=== PATIENT | female | born 1985 | race Caucasian/White ===

== ENCOUNTER 2016-12-24 12:46 | Emergency (ER) | payer OTHER ==
[~2016-12-24] VITALS: Ht 167.6 cm; Wt 61.2 kg
[2016-12-24] MEDS ORDERED: LIDOCAINE 1% INJ 20 ML (XYLOCAINE) VIAL ONE (12:52)
[2016-12-24] MEDS ORDERED: LIDOCAINE 1% INJ 20 ML (XYLOCAINE) VIAL INJ ONE (13:00)
--- NOTE | 2016-12-24 13:35 | ED GI ---
General Chief Complaint: Rect Problems Stated Complaint: HEMORRHOID Source of Information: Patient Exam Limitations: No Limitations History of Present Illness Time Seen By Provider: 13:30 Initial Comments This 31-year-old white female presents with external thrombosed hemorrhoids that have been painful and progressive for the last several days. The patient has been employing sitz baths without significant improvement. The patient's hemorrhoids first appeared with . Although they have, and gone in the past this time they been persistent precipitate a recent emergency department. Allergies and Home Medications Allergies Coded Allergies: No Known Allergies (Unverified Allergy, Mild, 01/28/09) Review of Systems Constitutional: No chills, No fever EENTM: No Blurred Vision Respiratory: Denies Cough Cardiovascular: Denies Chest Pain Gastrointestinal: Denies Abdominal Pain, Other (hemorrhoids) Genitourinary: Denies Burning, Denies Frequency Musculoskeletal: No back pain Skin: No rash Psychiatric/Neurological: No Symptoms Reported Endocrine: No Symptoms Reported Hematologic/Lymphatic: No Symptoms Reported Past Zgzhdli-Ckhaqp-Ikwsqp Hx Patient Social History Recent Foreign Travel: No Contact w/Someone Who Travel: No Reviewed Nursing Assessment Reviewed/Agree w Nursing PMH: Yes Physical Exam Vital Signs Capillary Refill : General Appearance: WD/WN, mild distress HEENT: normal ENT inspection Neck: normal inspection Respiratory: lungs clear Cardiovascular: regular rate, rhythm Gastrointestinal: normal bowel sounds, non tender, soft Rectal: hemorrhoids Extremities: normal range of motion, non-tender, normal inspection Back: normal inspection Pelvic: normal external exam Neurologic/Psychiatric: no motor/sensory deficits, alert, normal mood/affect, oriented x 3 Skin: normal color, warm/dry Progress/Results/Core Measures Results/Orders My Orders Orders - SHEMAR CARDENAS MD Lidocaine 1% Injection (Xylocaine 1% Inj (12/24/16 12:52) Lidocaine 1% Injection (Xylocaine 1% Inj (12/24/16 13:00) Progress Note : Time: 13:32 Progress Note The patient had 3 large external hemorrhoids extending from 3 o'clock counterclockwise to 8 o'clock. After a discussion of the procedure and with the patient's consent 1 percent plain Xylocaine was used for local anesthesia. The external thrombosed hemorrhoids were excised and the clots removed. The patient tolerated the procedure well. Her estimated blood loss was 25 mL. A dressing was then applied. Departure Impression Impression: Primary Impression: Hemorrhoids Qualified Codes: K64.9 - Unspecified hemorrhoids Disposition: 01 HOME, SELF-CARE Condition: Improved Departure-Patient Inst. Decision time for Depature: 13:34 Referrals: NO,LOCAL PHYSICIAN (PCP) Primary Care Physician Patient Instructions: Hemorrhoids (DC) Add. Discharge Instructions: Sitz baths for comfort and Vicodin for pain. Stool softener on a daily basis. Return of any problems or questions. Follow up with your caregiver choice early next week. All discharge instructions reviewed with patient and/or family. Voiced understanding. SHEMAR CARDENAS MD Dec 24, 2016 13:35
[2016-12-24] MEDS ORDERED: fentaNYL INJECTION 100 MCG/2 ML AMP IVP ONE (13:45)
[2016-12-24] MEDS ORDERED: LIDOCAINE UROJET 2% GEL 10 ML PKG ONE (13:46)
[2016-12-24] MEDS ORDERED: LIDOCAINE UROJET 2% GEL 10 ML PKG TOP ONE (14:00)
[2016-12-24 14:25] VITALS: BP 118/78
== END 2016-12-24 14:25 | disposition home or self-care (01) ==
LOC: EDUNIT# 12:46 → ER 12:50
DX: K64.5 Perianal venous thrombosis (principal)

== ENCOUNTER 2019-09-20 11:39 | Emergency (ER) | payer OTHER ==
[~2019-09-20] VITALS: Ht 162 cm; Wt 77.0 kg
[2019-09-20] MEDS ORDERED: LIDOCAINE/EPI 2% 1:100,00 (XYLOCAINE) 20 ML VIAL ONE (12:05)
[2019-09-20] MEDS ORDERED: LIDOCAINE 2% VISCOUS 15 ML UDC PO ONE (12:15)
[2019-09-20] MEDS ORDERED: LIDOCAINE/EPI 1%-1:200,000 (XYLOCAINE) 30 ML VIAL INJ ONE (12:15)
--- NOTE | 2019-09-20 12:41 | ED GI ---
General Chief Complaint: Rect Problems Stated Complaint: HEMORRHOID PAIN - 25 WKS PREG Source of Information: Patient Exam Limitations: No Limitations History of Present Illness Date Seen by Provider: Sep 20, 2019 Time Seen by Provider: 12:00 Initial Comments To ER with hemorrhoid pain ER with family since yesterday, she is 25 weeks p regnant. History of hemorrhoids with her last . Has been using sitz baths, witch nahid and Preparation H with no relief at home. Timing/Duration: 1-2 Days Severity/Quality: Moderate Radiation: No Radiation Activities at Onset: None Associated Symptoms: Denies Symptoms Allergies and Home Medications Allergies Coded Allergies: No Known Allergies (Unverified Allergy, Mild, 01/28/09) Patient Home Medication List Home Medication List Reviewed: Yes Review of Systems Review of Systems Constitutional: see HPI EENTM: No Symptoms Reported Respiratory: No Symptoms Reported Cardiovascular: No Symptoms Reported Gastrointestinal: See HPI Genitourinary: No Symptoms Reported Musculoskeletal: no symptoms reported Skin: no symptoms reported Psychiatric/Neurological: No Symptoms Reported Endocrine: No Symptoms Reported Hematologic/Lymphatic: No Symptoms Reported Past Bwgmvzj-Sraaas-Fuptvo Hx Patient Social History Alcohol Use: Denies Use Recreational Drug Use: No Smoking Status: Never a Smoker 2nd Hand Smoke Exposure: No Recent Foreign Travel: No Contact w/Someone Who Travel: No Physical Abuse: No Sexual Abuse: No Mistreated: No Fear: No Past Medical History Surgeries: No Respiratory: No Cardiac: No Neurological: No Genitourinary: No Gastrointestinal: No Musculoskeletal: No Endocrine: No HEENT: No Cancer: No Psychosocial: No Integumentary: No Blood Disorders: No Physical Exam Vital Signs Capillary Refill : Height/Weight/BMI Height: 5'6.00" Weight: 135lbs. oz. 61.085603mn; BMI Method:Estimated General Appearance: WD/WN, no apparent distress HEENT: PERRL/EOMI, normal ENT inspection Respiratory: no respiratory distress, no accessory muscle use Gastrointestinal: normal bowel sounds, soft Extremities: normal range of motion, non-tender Neurologic/Psychiatric: alert, normal mood/affect, oriented x 3 Skin: normal color, warm/dry Exam Comments Rectal exam done with Orin BROWNING at the bedside, there is a large acutely thrombosed hemorrhoid the size of [address] Anders was consulted, came over, we anesthetized this locally with 5 cc of 2% lidocaine with epinephrine 1-100,0 00, elliptical excision of the overlying skin was made and then extraction of a large amount of clotted material. This area was covered with gauze, she was sent home with lidocaine jelly to use as needed. Progress/Results/Core Measures Results/Orders My Orders Orders - CHANEL SHELTON APRN Lidocaine/Epi 1% 1:200,00 (Xylocaine/Epi (09/20/19 12:15) Lidocaine 2% Viscous 15 Ml (Xylocaine Vi (09/20/19 12:15) Lidocaine/Epi 2% 1:100,000 (Xylocaine/Ep (09/20/19 12:05) Medications Given in ED Current Medications Medications Dose Ordered Sig/Regina Route Start Time Stop Time Status Last Admin Dose Admin Lidocaine HCl 5 ml ONCE ONCE PO 09/20/19 12:15 09/20/19 12:16 DC 09/20/19 12:31 15 ML Lidocaine/ Epinephrine 20 ml STK-MED ONCE .ROUTE 09/20/19 12:05 09/20/19 12:12 DC 09/20/19 12:32 2 ML Departure Impression Primary Impression: Hemorrhoids Qualified Codes: K64.9 - Unspecified hemorrhoids Disposition: HOME, SELF-CARE Condition: Stable Departure-Patient Inst. Decision time for Depature: 12:42 Referrals: NO,LOCAL PHYSICIAN (PCP/Family) Primary Care Physician Patient Instructions: Hemorrhoids (DC) Add. Discharge Instructions: 1. If you have severe rectal pain as you can do some gauze in the lidocaine jelly and apply topically to the area a few times a day as needed. Continue with sitz baths, do not wipe after a bowel movement, instead get in the bathtub. Increase water intake and use Colace stool softener as directed which is safe in . All discharge instructions reviewed with patient and/or family. Voiced understanding. Scripts Docusate Sodium (Colace) 100 Mg Capsule 100 MG PO DAILY, #20 CAP Prov: CHANEL SHELTON APRN 09/20/19 CHANEL SHELTON APRN Sep 20, 2019 12:41
[2019-09-20] MEDS ORDERED: DOCU-143 PO (12:43)
[2019-09-20 12:54] VITALS: BP 153/95
--- NOTE | 2019-09-20 21:05 | Consultation - Surgery ---
History of Present Illness History of Present Illness Patient Consulted On(cyn/time) 09/20/19 20:59 Date Seen by Provider: Sep 20, 2019 Time Seen by Provider: 12:30 History of Present Illness seen and eval in ER Patient is a 33 year old female who is 25 weeks . She present to ER with hemorrhoid pain since yesterday. She has history of hemorrhoids with her last that has to have procedure for. Has been using sitz baths, witch nahid and Preparation H with no relief at home. She has pain that is moderate without radiation. Pain not improving, sitting makes worse. States it feels like it continues to get bigger with throbbing type pain. Denies any other complaints. Denies n/v fever sweats chills shortness of breath or chest pain. Allergies and Home Medications Allergies Coded Allergies: No Known Allergies (Unverified Allergy, Mild, 01/28/09) Home Medications Docusate Sodium 100 Mg Capsule, 100 MG PO DAILY Prescribed by: CHANEL SHELTON on 09/20/19 1243 Patient Home Medication List Home Medication List Reviewed: Yes Past Bdpdhte-Cxrseq-Jxhiwp Hx Patient Social History Alcohol Use: Denies Use Recreational Drug Use: No Smoking Status: Never a Smoker 2nd Hand Smoke Exposure: No Recent Foreign Travel: No Contact w/Someone Who Travel: No Recent Infectious Disease Expo: No Surgeries History of Surgeries: Yes (hemorrhoid) Respiratory History of Respiratory Disorde: No Cardiovascular History of Cardiac Disorders: No Neurological History of Neurological Disord: No Reproductive System : Yes Genitourinary History of Genitourinary Disor: No Gastrointestinal History of Gastrointestinal Di: No Musculoskeletal History of Musculoskeletal Dis: No Endocrine History of Endocrine Disorders: No HEENT History of HEENT Disorders: No Cancer History of Cancer: No Psychosocial History of Psychiatric Problem: No Integumentary History of Skin or Integumenta: No Blood Transfusions History of Blood Disorders: No Family Medical History Significant Family History: No Pertinent Family Hx Review of Systems-General Constitutional: No chills, No diaphoresis EENTM: No hearing loss, No ear pain, No blurred vision Respiratory: No dyspnea on exertion Cardiovascular: No chest pain Gastrointestinal: other (external thrombosed hemorrhoid) Genitourinary: No decreased output, No discharge Musculoskeletal: No back pain, No gout, No joint pain Skin: No change in color, No change in hair/nails Psychiatric/Neurological: Denies Anxiety, Denies Depressed, Denies Emotional Problems Physical Exam-General Problems Physical Exam Vital Signs Vital Signs - First Documented 09/20/19 12:06 Temp 36.5 Pulse 117 Resp 18 B/P (MAP) 153/95 (114) Pulse Ox 98 O2 Delivery Room Air Capillary Refill : Less Than 3 Seconds General Appearance: WD/WN, no apparent distress HEENT: PERRL/EOMI, normal ENT inspection, TMs normal Neck: non-tender, supple Respiratory: chest non-tender, no respiratory distress, no accessory muscle use Cardiovascular: regular rate, rhythm Gastrointestinal: non tender, soft, other (enlarged uterus) Rectal: other (left lateral external thromobsed hemorrhoid) Back: no CVA tenderness, no vertebral tenderness Extremities: normal range of motion Neurologic/Psychiatric: alert, normal mood/affect, oriented x 3 Skin: normal color, warm/dry Lymphatic: no adenopathy Assessment/Plan Assessment/Plan Assessment/Plan thrombosed external hemorhoid rectal pain 25 weeks patient intstructed to continue sitz baths keep stools soft discussed incision and drainage and evacuation of clot she understands and wishes to proceed follow up in about 1-2 weeks, if any issues be seen at that time. Procedure: Patient prepped and drapped. Local anesthetic injected into left lateral thrombosed hemorrhoid and elliptical portion of skin of hemorrhoid removed and hemostat was used to dissect around the clot and remove, wound was further explored and all clot was evacuated. area was cleaned and dried and sterile bandage applied. Patient tolerated well without any complication. SARIKA CORTEZ DO Sep 20, 2019 21:05
--- OUTSIDE RECORDS SUMMARY | 2019-09-21 19:43 | XMS REPORT ---
Author Author [facility] Organization [facility] Address [address] [address] Care Team Providers Care Internet Security Specialist Name Role Phone NO, LOCAL PHYSICIAN Unavailable Unavailable SHEMAR CARDENAS MD Unavailable Unavailable Allergies Normalized Allergy Reported Date of Reaction(s) Care Provider Facility Allergy Type classification allergen Allergy Onset KASH (5 Unclassified NKANo Known 01-28-2009 - no information KASH CARDENAS , Not Available sources.) Allergies (71901) Medications The data below is from unstructured sourcesNo medication information available. Problems No Information Procedures The data below is from unstructured sourcesNo procedure information available. Immunizations No Information Results No Information Vital Signs The data below is from unstructured sources Vital Response Date/Time Temperature (Fahrenheit) 97.5 degree s F (97.6 - 99.5) 12/24/2016 1:00pm Temperature (Calculated Celsius) 36. 10251 degrees C (36.4 - 37.5) 12/24/2016 1:00pm Temperature Source Temporal 12/24/2016 1:00pm Pulse Rate (adult) 70 bpm (60 - 90) 12/24/2016 1:00pm Respiratory Rate 16 bpm (12 - 24) 12/24/2016 1:00pm O2 Sat by Pulse Oximetry 98 % (88 - 100) 12/24/2016 1:00pm Blood Pressure 126/76 mm Hg 12/24/2016 1:00pm Blood Pressure Mean 93 mm Hg 12/24/2016 1:00pm Pain Numeric Pain Scale 6 1:00pm Height (Feet) 5 feet 1:00pm Height (Inches) 6.00 inches 12/24/2016 1:00pm Height (Calculated Centimeters) 167. 752374 cm 12/24/2016 1:00pm Weight (Pounds) 135 pounds 12/24/2016 1:00pm Weight (Calculated Kilograms) 61.234 971 kilograms 12/24/2016 1:00pm Capillary Refill Capillary Refill Less Than 3 Seconds 12/24/2016 1:00pm Height 5 ft 6 in 017 1:00pm Weight 135 lb 12/24/2016 1:00pm Body Mass Index 21.8 kg/m^2 12/24/2016 1:00pm Interventions No Information Plan of Treatment The data below is from unstructured sources Discharge Date 12/24/16 2:25pm Disposition 01 HOME, SELF-CARE Condition at Discharge Improved Instructions/Education Provided Hemo rrhoids (DC) Prescriptions See Medication Section Referrals NO,LOCAL PHYSICIAN Order Date: Primary Care Physician Note: Additional Instructions/Education Si tz baths for comfort and Vicodin for pain. Stool softener on a daily basis. Return of any problems or questions. Follow up with your caregiver choice early next week. All discharge instructions reviewed with patient and/or family. Voiced understanding. Goals No Information Social History No Information Functional Status The data below is from unstructured sourcesNo functional status information available. Mental Status No Information Encounters Encounter Normalized Encounter Encounter Diagnosis Care Provi mick Organization Date Type 12-24-2016 Patient encounter no information no name (no phone) no organization name procedure (no phone) Medical Equipment No Information Payers No Information Advance Directives Directive Response Recor ded Date/Time Advance Directives No 1:00pm Resuscitation Status Full Code 12/24/16 1:00pm Discharge Instructions No hospital discharge instruction information available. Additional Source Comments This clinical document has been generated using [employer] software that has been certified by the Office of the National Coordinator for Health Information Technology (ONC 15.99.04.3023.Diam.31.00.0.199638) and the National Committee for Multiple Cut Off Saw Operator (NCQA, as an eMeasure certified technology). FOR RECORDS PERTAINING TO PATIENTS WHO ARE OR HAVE BEEN ENROLLED IN A CHEMICAL D EPENDENCY/SUBSTANCE ABUSE PROGRAM, SOME INFORMATION MAY BE OMITTED. This clinica l summary was aggregated from multiple sources. Caution should be exercised in using it in the provision of clinical care. This summary normalizes information from multiple sources, and as a consequence, information in this document may ma terially change the coding, format and clinical context of patient data. In helder tion, data may be omitted in some cases. CLINICAL DECISIONS SHOULD BE BASED ON T HE PRIMARY CLINICAL RECORDS. [employer], [facility]. provides no warranty or guara ntee of the accuracy or completeness of information in this document.The followi ng information is based on time limited clinical information
== END 2019-09-20 12:54 | disposition home or self-care (01) ==
LOC: EDUNIT# 11:39 → ER 11:41
DX: O22.42 Hemorrhoids in pregnancy, second trimester (principal); Z3A.25 25 weeks gestation of pregnancy
CPT/HCPCS: 99284